=== PATIENT | female | born 1980 | race African-American/Black ===

== ENCOUNTER 2019-06-30 16:13 | Emergency (ER) | payer OTHER, SELFPAY ==
[2019-06-30] VITALS (8 sets, daily range): BP systolic 130–148; BP diastolic 60–97; PULSE 65–93; RESP 17–28; TEMP 36.7; O2SAT 100
--- NOTE | ~2019-06-30 | CT_ITS ---
EXAMINATION: CT BRAIN W/O DATE: 06/30/2019 20:38 INDICATION: Dizziness TECHNIQUE: Computed tomography (CT) of the head was performed without intravenous contrast. The dose- length product was 605.33 mGy-cm. The mA was adjusted according to patient size. Iterative reconstruc tion technique was employed. COMPARISON: CT dated 10/29/2012 FINDINGS: Normal brain parenchymal volume for age. Normal valera-white differentiation. No acute intrac ranial hemorrhage, infarction, mass or mass effect. No ventriculomegaly or midline shift. Midline sagittal images demonstrate a normal corpus callosum, c raniovertebral junction and sella turcica. Basilar cisterns are patent. Mild right frontal sinus disease. Mastoids are pneumatized. No depressed skull fractures. IMPRESSION: 1. No acute intracranial abnormality. 2: Mild right frontal sinus disease. Reviewed, dictated and finalized at location A. TER TENDER
--- NOTE | ~2019-06-30 | XR_ITS ---
EXAMINATION: XR chest 1V portable 06/30/2019 19:55 INDICATION: Dizziness. Smoker. PROCEDURE: AP portable chest COMPARISON: No prior studies for comparison. FINDINGS: The lungs are clear. The cardiomediastinal silhouette is within normal limits. There are no pleural effusions. There is no pneumothorax suspected. IMPRESSION: 1: NO ACUTE CARDIOPULMONARY DISEASE. Reviewed, dictated and finalized at location A. RAM DEVELOPER
--- NOTE | 2019-06-30 16:19 | ECG_ITS ---
Measurements Intervals [place] Rate: 84 P: 49 CT: 168 QRS: 18 QRSD: 82 T: 31 QT: 355 QTc: 421 Interpretive Statements SINUS RHYTHM BORDERLINE T WAVE ABNORMALITY- INFERIOR LEADS BASELINE ARTIFACT- I, II, III, AVR, AVL, AVF BORDERLINE ECG Electronically Signed On 06-30-2019 19:02:49 SCRIPT ARTIST by Brennon Fortune D.O.
[2019-06-30 16:46] LABS: Basophils Absolute Auto 0.1 K/mm3 (0.0-0.1); Basophils Percent Auto 0.7 % (0.2-1.2); Eosinophils Absolute Auto 0.1 K/mm3 (0-0.3); Eosinophils Percent Auto 0.8 % (0-4.4); Hemoglobin 8.5 g/dL (12.0-15.0); Immature Granulocyte Absolute 0.03 K/mm3 (0.00-0.031); Immature Granulocyte Percent A 0.4 % (0-0.5); Lymphocytes Absolute Auto 1.84 K/mm3 (0.9-3.2); Lymphocytes Percent Auto 24.4 % (18.3-44.2); Mean Corpuscular HGB Conc 29.3 g/dl (32-36); Mean Corpuscular Volume 61.4 fl (80-100); Mean Platelet Volume 9.9 fl (7.4-10.4); Monocytes Absolute Auto 0.4 K/mm3 (0.1-0.6); Monocytes Percent Auto 5.8 % (2.6-8.5); Neutrophils Absolute Auto 5.1 K/mm3 (1.3-6.7); Neutrophils Percent Auto 67.9 % (45.5-73.1); Platelet Count Result 297 k/mm3 (150-375); Red Blood Count 4.72 M/mm3 (4.2-5.4); Red Cell Distribution Width 20.4 % (11.5-14.5); White Blood Count 7.6 K/mm3 (4.5-10.0)
[2019-06-30 16:54] LABS: Hypochromasia 2+ (NORMAL); Platelet Estimate Adequate (Adequate)
[2019-06-30 16:55] LABS: Blood Urea Nitrogen 10 mg/dL (7-17); Calcium 9.4 mg/dL (8.4-10.2); Carbon Dioxide 20 mmol/L (22-30); Chloride 104 mmol/L (98-107); Estimated CRCL calculation 154 ml/min; Estimated Glomerular Filt Rate > 60; Glucose 83 mg/dL (65-105); Potassium 3.7 mmol/L (3.4-5.0); Sodium 135 mmol/L (137-145)
--- NOTE | 2019-06-30 19:44 | ED.DIZZY ---
HPI - Dizziness General Chief Complaint: Dizziness Stated Complaint: DIZZY Time Seen by Provider: 06/30/19 19:42 Source: patient and RN notes reviewed Mode of arrival: ambulatory Limitations: no limitations History of Present Illness HPI Narrative: A 38 y/o female presents to the ED d/t dizziness beginning earlier today. She states that she was at work and bent over, when she became very dizzy and felt like she was going to pass out. She reports that movement aggravates her dizziness. She also notes that her BP was 150/80 while she was at work. She denies any numbness, tingling, CP, SOB, fevers, chills, ABD pain, and any other medical complaints at this time. MD elicited complaint: dizziness Onset (ago): hour(s) (earlier today) Timing: sudden onset Context: change in body position Exacerbating factors: change in body position Associated symptoms: denies other symptoms Related Data Allergies Allergy/AdvReac Type Severity Reaction Status Date / Time morphine Allergy Mild Unknown Verified 06/01/19 21:17 Sulfa (Sulfonamide Allergy Mild Unknown Verified 06/01/19 21:17 Antibiotics) CRANBERRIES Allergy Unknown Unknown Uncoded 06/01/19 21:17 Review of Systems Review of Systems: All systems reviewed & are unremarkable except as noted in HPI and below Constitutional: Constitutional: Denies chills and Denies fever(s) Cardiovascular: Cardiovascular: Denies chest pain Respiratory: Respiratory: Denies dyspnea Gastrointestinal: Gastrointestinal: Denies abdominal pain Neurologic: Reports dizziness, Denies numbness and Denies tingling PMFSH Past Medical History Medical History (Updated 06/30/19 @ 21:20 by Jaron Chavez DO) Depression GERD (gastroesophageal reflux disease) Pneumonia Surgical History Surgical History (Updated 06/01/19 @ 21:54 by Tierney Reed) H/O LEEP Hx of cholecystectomy Hx of tubal ligation Social History Social History (Updated 06/01/19 @ 21:54 by Tierney Reed) Smoking status: Current every day smoker Exam Narrative: Exam Narrative: APPEARANCE: No acute distress, nontoxic, resting in bed HEENT: Normocephalic, atraumatic, OMM, TMs clear bilaterally EYES: PERRL, EOMI NECK: Supple, nontender, full range of motion without pain, no meningismus RESPIRATORY: No respiratory distress, clear to auscultation bilaterally with no rhonchi wheezing or rales CARDIOVASCULAR: RRR s murmur ABDOMINAL: Soft, nontender, nondistended MUSCULOSKELETAL: Moves all extremities. No clubbing, cyanosis or edema. NEURO: A and O ?3, following commands, speech normal, cranial nerves II through XII grossly intact,muscle strength 5 out of 5 bilateral upper and lower extremities patient is vertigo is worse with movement of the head bilateral SKIN:: Warm, dry. Normal Color PSYCHIATRIC: Normal affect/mood Course Course Emergency Course: Patient states she is feeling much better follow medication. Dizziness has resolved Discussed with patient results of workup and diagnosis. Discussed need for follow-up with primary care, proper use of medication, and reasons to return to the emergency department. Patient understands and agrees to current treatment plan Vital Signs Vital signs: Vital Signs Temperature 98.1 F 06/30/19 16:16 Pulse Rate 93 06/30/19 16:16 Respiratory Rate 20 06/30/19 16:16 Blood Pressure 148/97 H 06/30/19 16:16 Pulse Oximetry 100 06/30/19 16:16 Temperature 98.1 F 06/30/19 16:16 Pulse Rate 70 06/30/19 21:18 Respiratory Rate 28 H 06/30/19 21:18 Blood Pressure 133/60 06/30/19 21:18 Pulse Oximetry 100 06/30/19 21:18 MDM - Dizziness MDM Narrative Medical decision making narrative: Patient's vertigo is felt to be likely peripheral in origin. There is no diplopia, dysarthria or dysphagia. Patient's gait is stable and there are no cerebral deficits to exam. Risk factor for central causes of vertigo reviewed. Patient felt likely reasonable for continued outpatient m
[2019-06-30] MEDS: LACTATED RINGERS 1,000 ML 999 ML IV CONT (20:16)
[2019-06-30] MEDS: MECLIZINE HCL 25 MG TABLET PO (20:16)
[2019-06-30 20:30] LABS: Add Urine Microscopic? YES; Amorphous Sediment Urine Few; Appearance Urine Cloudy (Clear); Bacteria Urine 1+ /hpf; Bilirubin Urine Negative (Negative); Blood Urine 3+ (Negative); Color Urine Yellow (Yellow); Glucose Urine UA Negative (Negative); Ketones Urine Negative (Negative); Leukocyte Esterase Ur 1+ LEU/UL (Negative); Mucus Urine Moderate /lpf; Nitrate Urine Negative (Negative); Protein Urine Negative (Negative); RBC Urine >75 /hpf (0-2); Specific Grav Ur 1.018 (1.001-1.035); Squamous Epithelial Cell Urine Few /hpf (Few); Urobilinogen Urine Negative mg/dL (<2.0); WBC Urine 21-30 /hpf
[2019-06-30 20:48] LABS: Troponin I < 0.012 ng/mL (0.000-0.034)
[2019-06-30] MEDS: NITROFURANTOIN MONOHYD MACROCR 100 MG CAP PO (21:33)
== END 2019-06-30 21:37 | disposition home or self-care (01) ==
PROVIDERS: Emergency Medicine; Emergency Provider Emergency Medicine; PCP Family Medicine
DX: R42 Dizziness and giddiness (principal); N39.0 Urinary tract infection, site not specified; K21.9 Gastro-esophageal reflux disease without esophagitis; F17.200 Nicotine dependence, unspecified, uncomplicated; J32.1 Chronic frontal sinusitis; R94.31 Abnormal electrocardiogram [ECG] [EKG]
CPT/HCPCS: 36415; 70450; 71045; 80048; 81001; 81025; 84484; 85025; 85055; 87077; 87086; 87088; 93005; 96360; 99284; A9270; J7120

== ENCOUNTER 2019-07-29 11:03 | Emergency (ER) | payer OTHER, SELFPAY ==
[2019-07-29 11:10] VITALS: BP 136/84; PULSE 86; RESP 20; TEMP 37.6; O2SAT 100
[2019-07-29] MEDS: SODIUM CHLORIDE 0.9% IV 1,000 ML 999 ML IV CONT (12:01)
[2019-07-29] MEDS: KETOROLAC 15 MG/ML VIAL (*BKC) IV PUSH (12:03)
[2019-07-29] MEDS: PROCHLORPERAZINE EDISYLATE 10 MG/2 ML VIAL IV PUSH (12:04)
[2019-07-29 12:05] VITALS: BP 124/75; PULSE 60; RESP 12; TEMP 36.6; O2SAT 100
[2019-07-29 13:46] VITALS: BP 129/52; PULSE 62; RESP 19; TEMP 36.7; O2SAT 99
--- NOTE | 2019-07-29 14:24 | ED.HA ---
HPI - Headache General Chief Complaint: Headache Stated Complaint: headache/vomiting Time Seen by Provider: 07/29/19 11:10 Source: patient Mode of arrival: ambulatory Limitations: no limitations History of Present Illness HPI Narrative: Patient presents with chief complaint of frontal migraine that presented yesterday. Patient states she is alternating Tylenol, Motrin and Excedrin without relief of her migraine. Patient reports sensitivity to light and sound. Patient denies any head impact or injury. Patient denies any changes to her vision, hearing or neurological deficits. Patient reports a history of migraines and states that this 1 is presenting the same as previous. Patient denies chance of due to tubal ligation. Patient reports nausea and vomiting this morning due to the migraine. Related Data Home Medications Medication Instructions Recorded Confirmed multivitamin tablet 07/29/19 sertraline mg 07/29/19 Allergies Allergy/AdvReac Type Severity Reaction Status Date / Time morphine Allergy Severe Swelling Verified 07/29/19 11:16 of Lip/Tongue/Throat Sulfa (Sulfonamide Allergy Severe Rash Verified 07/29/19 11:16 Antibiotics) CRANBERRIES Allergy Severe Rash Uncoded 07/29/19 11:16 Review of Systems Review of Systems: Narrative: CONSTITUTIONAL: Denies fever, chills, or sweats. EYES: Denies visual changes, redness, or discharge. ENT: Denies rhinorrhea, congestion, sore throat, or otalgia. CARDIOVASCULAR: Denies chest pain, palpitations, or edema. RESPIRATORY: Denies cough or dyspnea. GASTROINTESTINAL: Denies abdominal pain, nausea, vomiting, or diarrhea. GENITOURINARY: Denies dysuria or hematuria. SKIN: Denies rash or itching. MUSCULOSKELETAL: Denies back pain, joint pain, or myalgia. NEUROLOGIC: Reports headache, denies numbness, dizziness, or weakness. PSYCHIATRIC: Denies anxiety or depression. [facility] Past Medical History Medical History (Updated 07/29/19 @ 14:32 by Carlota Varela PA-C) Depression GERD (gastroesophageal reflux disease) Pneumonia Surgical History Surgical History (Updated 06/01/19 @ 21:54 by Tierney Reed) H/O LEEP Hx of cholecystectomy Hx of tubal ligation Social History Social History (Updated 06/01/19 @ 21:54 by Tireney Reed) Smoking status: Current every day smoker Gender identity (if verbalized by the patient): Female Exam Narrative: Exam Narrative: GENERAL: Well-appearing, well-nourished, and in no acute distress. HEAD: Normocephalic, atraumatic. EYES: PERRLA and EOMI. ENT: Nares clear, no rhinorrhea or epistaxis. Mucous membranes moist. Oropharynx without tonsillar hypertrophy exudate or other lesions. Bilateral TMs pearly valera nonbulging NECK: Supple. No adenopathy or masses. No carotid bruits or JVD CHEST: Clear to auscultation. No respiratory distress. No wheezes rales or rhonchi HEART: Regular rate and rhythm. No murmur heard. Normal peripheral pulses. EXTREMITIES: Normal range of motion. No edema. SKIN: Warm, dry, no rash. NEURO: No focal deficits. Alert and oriented x3. PSYCH: Normal mood and affect. Course Vital Signs Vital signs: Vital Signs Temperature 99.7 F H 07/29/19 11:10 Pulse Rate 86 07/29/19 11:10 Respiratory Rate 20 07/29/19 11:10 Blood Pressure 136/84 07/29/19 11:10 Pulse Oximetry 100 07/29/19 11:10 Temperature 98.1 F 07/29/19 13:46 Pulse Rate 62 07/29/19 13:46 Respiratory Rate 19 07/29/19 13:46 Blood Pressure 129/52 L 07/29/19 13:46 Pulse Oximetry 99 07/29/19 13:46 MDM - Headache MDM Narrative Medical decision making narrative: Patient reports resolution of her migraine. Patient has been ambulating without any discomfort or distress. Patient states she is ready to be discharged home at this time. Patient will be given a note for work. Patient directed to return to emerge department if she develops any concerning, worsening or emergent symptoms. Patie
[2019-07-29 14:28] VITALS: BP 132/58; PULSE 70; RESP 14; TEMP 36.2; O2SAT 98
== END 2019-07-29 15:00 | disposition home or self-care (01) ==
PROVIDERS: Emergency Provider Family Medicine; PCP Family Medicine
DX: G43.009 Migraine without aura, not intractable, without status migrainosus (principal); F32.9 Major depressive disorder, single episode, unspecified; K21.9 Gastro-esophageal reflux disease without esophagitis; F17.200 Nicotine dependence, unspecified, uncomplicated
CPT/HCPCS: 96361; 96374; 96375; 99284; J0780; J1100; J1885; J7030

== ENCOUNTER 2020-11-03 16:18 | Emergency (ER) | payer OTHER, SELFPAY ==
--- NOTE | ~2020-11-03 | XR_ITS ---
XR hand RT min 3V DATE: 11/03/2020 16:50 INDICATION: Hyperextension injury and pain of fifth digit TECHNIQUE: 3 views COMPARISON: None FINDINGS: No fracture or dislocation, periosteal reaction or bone destruction. IMPRESSION: Negative Reviewed, dictated and finalized at location A. IMPRESSION: Negative
[2020-11-03 16:27] VITALS: BP 139/80; PULSE 80; RESP 17; TEMP 36.8; O2SAT 100
--- NOTE | 2020-11-03 17:41 | ED.GENADULT ---
HPI - General Adult General Chief complaint: Extremity Injury, Upper Stated complaint: finger injury Time Seen by Provider: 11/03/20 16:39 Source: patient Mode of arrival: ambulatory Limitations: no limitations History of Present Illness HPI narrative: Patient presents for evaluation of pain in the fifth digit of the right hand. 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 The incident occurred at approximately 1520 today. Immediately following the event she took 800mg ibuprofen but states that the medication did not reduce her pain level. States her pain is throbbing, severe and without numerical rating. No paresthesias. No loss of range of motion however movement does make her pain worse. She is right-hand dominant. No additional complaints or concerns. Related Data Home Medications Medication Instructions Recorded Confirmed multivitamin tablet 11/03/20 sertraline mg 11/03/20 Allergies Allergy/AdvReac Type Severity Reaction Status Date / Time morphine Allergy Anaphylactic Verified 11/03/20 16:35 Shock Sulfa (Sulfonamide Allergy Rash Verified 11/03/20 16:35 Antibiotics) Review of Systems Review of Systems: Narrative: CONSTITUTIONAL: Denies fever, chills, or sweats. EYES: Denies visual changes, redness, or discharge. ENT: Denies rhinorrhea, congestion, sore throat, or otalgia. CARDIOVASCULAR: Denies chest pain, palpitations, or edema. RESPIRATORY: Denies cough or dyspnea. GASTROINTESTINAL: Denies abdominal pain, nausea, vomiting, or diarrhea. GENITOURINARY: Denies dysuria or hematuria. SKIN: Denies rash or itching. MUSCULOSKELETAL: Reports right hand pain. Denies pain otherwise NEUROLOGIC: Denies headache, numbness, dizziness, or weakness. PSYCHIATRIC: Denies anxiety or depression. 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 HEAD: Normocephalic, atraumatic. EYES: PERRLA and EOMI. ENT: Nares clear, no rhinorrhea or epistaxis. Mucous membranes moist. Oropharynx without tonsillar hypertrophy exudate or other lesions. Bilateral TMs pearly valera nonbulging NECK: Supple. No adenopathy or masses. No carotid bruits or JVD CHEST: Clear to auscultation. No respiratory distress. No wheezes rales or rhonchi HEART: Regular rate and rhythm. No murmur heard. Normal peripheral pulses. ABDOMEN: Soft, nontender, nondistended, normal active bowel sounds. EXTREMITIES: Tenderness over the metacarpal of the fifth digit of the right hand and over the proximal and middle phalanges of the fifth digit of the right hand without crepitus or deformity SKIN: Warm, dry, no rash. NEURO: No focal deficits. Alert and oriented x3. PSYCH: Normal mood and affect. Course Course Emergency Course: This is a 40-year-old female who presents with a few hour history of right finger pain. X-ray negative for fracture. Provided with finger splint. Given Tylenol in the emergency department. Advise follow-up with occupational health and return fo
[2020-11-03] MEDS: ACETAMINOPHEN 500 MG TABLET 1000 MG PO (17:52)
--- NOTE | 2020-11-15 07:47 | PC.NURSE ---
LATE ENTRY This note is being entered to document information to the patient's record. The following information was omitted on [11/07/2020], by [Rachel Goel RN]. verbal order given to place metal finger splint by EDP Carry
== END 2020-11-03 18:21 | disposition home or self-care (01) ==
PROVIDERS: Emergency Provider Nurse Practitioner
DX: S66.911A Strain of unspecified muscle, fascia and tendon at wrist and hand level, right hand, initial encounter (principal); F32.9 Major depressive disorder, single episode, unspecified; F17.210 Nicotine dependence, cigarettes, uncomplicated; X50.9XXA Other and unspecified overexertion or strenuous movements or postures, initial encounter; Y93.F9 Activity, other caregiving
CPT/HCPCS: 29130; 73130; 99283; A9270

== ENCOUNTER 2020-12-06 01:05 | Emergency (ER) | payer OTHER, SELFPAY ==
[2020-12-06 01:06] VITALS: BP 145/59; PULSE 105; RESP 18; TEMP 35.9; O2SAT 100
--- NOTE | 2020-12-06 01:19 | ED.DENTAL ---
HPI - Dental/Oral General Chief complaint: Dental/Oral Stated complaint: TOOTH PAIN Time Seen by Provider: 12/06/20 01:16 Source: patient and family Mode of arrival: ambulatory Limitations: no limitations History of Present Illness HPI Narrative: 40-year-old with no major medical problems here with complaints of dental pain for last 2 days however in the middle of the night pain got intensified. She states that she is unable to sleep. She is scheduled to see a dentist next week. No history of fever or chills. Location: Tooth # (10,11,12) Onset (ago): day(s) (2) Severity scale (1-10): 10 Exacerbating factors: nothing Context: history of dental caries Related Data Home Medications Medication Instructions Recorded Confirmed multivitamin tablet 11/03/20 sertraline mg 11/03/20 Allergies Allergy/AdvReac Type Severity Reaction Status Date / Time morphine Allergy Anaphylactic Verified 12/06/20 01:10 Shock Sulfa (Sulfonamide Allergy Rash Verified 12/06/20 01:10 Antibiotics) Review of Systems Review of Systems: All systems reviewed & are unremarkable except as noted in HPI and below Constitutional: Constitutional: Reports no additional constitutional complaints Eyes: Eyes: Reports no additional eye complaints ENT: Reports dental pain Cardiovascular: Cardiovascular: Reports no additional cardiovascular complaints Respiratory: Respiratory: Reports no additional respiratory complaints PMFSH Past Medical History Medical History Depression Surgical History Surgical History History of cholecystectomy History of tubal ligation Family History Family History Mother Colon cancer Breast cancer Social History Social History Smoking packs per day: 1 Smoking cigarettes per day: 20.0 Smoking status: Current every day smoker Alcohol use details: Social Substance use: never 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 HEAD: Normocephalic, atraumatic. EYES: PERRLA and EOMI. ENT: Nares clear, . Mucous membranes moist. Multiple dental caries #10, 11, 12 NECK: Supple. CHEST: Clear to auscultation. No respiratory distress. HEART: Regular rate and rhythm. No murmur heard. Normal peripheral pulses. ABDOMEN: Soft, nontender, nondistended, normal active bowel sounds. EXTREMITIES: Normal range of motion. No edema. SKIN: Warm, dry, no rash. NEURO: No focal deficits. Alert and oriented x3. PSYCH: Normal mood and affect. Course Vital Signs Vital signs: Vital Signs Temperature 35.9 C L 12/06/20 01:06 Pulse Rate 105 H 12/06/20 01:06 Respiratory Rate 18 12/06/20 01:06 Blood Pressure 145/59 H 12/06/20 01:06 Pulse Oximetry 100 12/06/20 01:06 Temperature 35.9 C L 12/06/20 01:06 Pulse Rate 105 H 12/06/20 01:06 Respiratory Rate 18 12/06/20 01:06 Blood Pressure 145/59 H 12/06/20 01:06 Pulse Oximetry 100 12/06/20 01:06 Discharge Plan Discharge Clinical Impression: Dental caries Patient Disposition: Home, Self-Care Condition: Stable Instructions: Antibiotic Form, Toothache (ED) Prescriptions: New amoxicillin 875 mg tablet 875 mg PO Q12H Qty: 20 RF: 0 hydrocodone-acetaminophen 5-325 mg tablet 1 tablet PO Q8H PRN (Reason: pain) Qty: 14 RF: 0 No Action multivitamin Tablet RF: 0 sertraline 100 mg tablet RF: 0 Follow-up/Referrals: PHYSICIAN,DIRECTOR OF PROCUREMENT [Primary Care Provider] - Stand Alone Forms: Work/School Release IP Time of Dispo
[2020-12-06] MEDS: HYDROcodone/acetaminophen (*CRX) 5-325 MG TABLET 1 TAB PO (01:30)
== END 2020-12-06 02:00 | disposition home or self-care (01) ==
LOC: ANHED 02:04
PROVIDERS: Emergency Provider Family Medicine
DX: K02.9 Dental caries, unspecified (principal); F32.9 Major depressive disorder, single episode, unspecified; F17.210 Nicotine dependence, cigarettes, uncomplicated
CPT/HCPCS: 99283; A9270

== ENCOUNTER 2020-12-20 21:22 | Emergency (ER) | payer OTHER, SELFPAY ==
[2020-12-20 21:24] VITALS: BP 148/80; PULSE 97; RESP 18; TEMP 36.7; O2SAT 100
--- NOTE | 2020-12-20 21:50 | ED.DENTAL ---
HPI - Dental/Oral General Chief complaint: Dental/Oral Stated complaint: toothache Time Seen by Provider: 12/20/20 21:29 Source: patient Mode of arrival: ambulatory Limitations: no limitations History of Present Illness HPI Narrative: This is a 40 year old female that presents to the ER for toothache present since yesterday. Reports pain and swelling in an upper, front tooth. She has an appointment to see a dentist, but it is not until December. Denies fever. MD Complaint: tooth pain Location: Tooth # (10) Related Data Home Medications Medication Instructions Recorded Confirmed multivitamin tablet 07/29/19 sertraline mg 07/29/19 Allergies Allergy/AdvReac Type Severity Reaction Status Date / Time morphine Allergy Severe Swelling Verified 12/20/20 21:33 of Lip/Tongue/Throat Sulfa (Sulfonamide Allergy Severe Rash Verified 12/20/20 21:33 Antibiotics) CRANBERRIES Allergy Severe Rash Uncoded 12/20/20 21:33 Review of Systems Review of Systems: Narrative: CONSTITUTIONAL: Denies fever ENT: Reports dentalgia All systems reviewed & are unremarkable except as noted in HPI and below PMFSH Past Medical History Medical History (Updated 12/20/20 @ 22:00 by Shanthi Alvarez PA-C) Depression GERD (gastroesophageal reflux disease) Pneumonia Surgical History Surgical History (Updated 06/01/19 @ 21:54 by Tierney Reed) H/O LEEP Hx of cholecystectomy Hx of tubal ligation Social History Social History (Updated 06/01/19 @ 21:54 by Tierney Reed) Smoking status: Current every day smoker Gender identity (if verbalized by the patient): Female Exam Narrative: Exam Narrative: GENERAL: Well-appearing, well-nourished, and in no acute distress. HEAD: Normocephalic, atraumatic. EYES: EOMI. ENT: Mucous membranes moist. Oropharynx without tonsillar hypertrophy exudate or other lesions. Poor dentition. Tooth #10 is broken with mild surrounding erythema, no edema or fluctuance to suggest abscess NECK: Supple. No adenopathy or masses CHEST: Airway patent EXTREMITIES: Normal range of motion. No edema. SKIN: Warm, dry, no rash. NEURO: No focal deficits. Alert and oriented x3. PSYCH: Normal mood and affect Course Vital Signs Vital signs: Vital Signs Temperature 98.0 F 12/20/20 21:24 Pulse Rate 97 12/20/20 21:24 Respiratory Rate 18 12/20/20 21:24 Blood Pressure 148/80 H 12/20/20 21:24 Pulse Oximetry 100 12/20/20 21:24 Temperature 98.0 F 12/20/20 21:24 Pulse Rate 97 12/20/20 21:24 Respiratory Rate 18 12/20/20 21:24 Blood Pressure 148/80 H 12/20/20 21:24 Pulse Oximetry 100 12/20/20 21:24 MDM - Dental/Oral MDM Narrative Medical decision making narrative: Patient presents the emergency department for toothache since yesterday. She is afebrile and nontoxic-appearing. There is mild redness and tenderness surrounding the tooth. No edema or fluctuance to suggest abscess. Patient will be started on oral antibiotics. She is to follow-up with her dentist. She was given warnings to return the ER Critical Care Time Critical Care Time Critical Care Time: No Discharge Plan Discharge Clinical Impression: Toothache Patient Disposition: Home, Self-Care Condition: Stable Instructions: Antibiotic Form, Toothache (ED) Additional Instructions: Return to the Emergency Department if you experience fever >101, increasing swelling and redness of your tooth, or any other symptoms that are concerning to you Take antibiotic as prescribed. Tylenol or Ibuprofen as needed for pain. Follow up with your dentist Prescriptions: New amoxicillin-pot clavulanate 875-125 mg tablet 1 tablet PO Q12H 7 Days Qty: 14 RF: 0 No Action multivitamin Tablet RF: 0 sertraline 100 mg tablet RF: 0 Follow-up/Referrals: Ankit Beasley MD [Primary Care Provider] -
[2020-12-20] MEDS: AMOXICILLIN/CLAVULANATE K 875-125 MG TAB 1 TABLET PO (21:57)
[2020-12-20] MEDS: KETOROLAC (*BKC) 60 MG/2 ML VIAL IM (21:57)
[2020-12-20] MEDS: ACETAMINOPHEN 500 MG TABLET 1000 MG PO (21:57)
== END 2020-12-20 22:08 | disposition home or self-care (01) ==
LOC: ANHED 22:04
PROVIDERS: Emergency Provider Emergency Medicine
DX: K08.89 Other specified disorders of teeth and supporting structures (principal); F32.9 Major depressive disorder, single episode, unspecified; K21.9 Gastro-esophageal reflux disease without esophagitis; Z87.01 Personal history of pneumonia (recurrent); F17.200 Nicotine dependence, unspecified, uncomplicated
CPT/HCPCS: 96372; 99283; A9270; J1885

== ENCOUNTER 2023-09-14 15:44 | Outpatient (CLI) | payer OTHER, SELFPAY ==
--- NOTE | ~2023-09-14 | US_ITS ---
EXAMINATION: US pelvic complete w TV DATE: 09/14/2023 16:34 INDICATION: Pelvic and perineal pain. TECHNIQUE: Multiple transabdominal and transvaginal sonographic images of the pelvis were obtained. COMPARISON: None. FINDINGS: TRANSABDOMINAL ULTRASOUND: The uterus measures 9.2 x 5.1 x 5.8 cm. There is physiologic free fluid in the pelvis. TRANSVAGINAL ULTRASOUND: The endometrial complex measures 17 mm in thickness. There is a 1.4 cm intramural fibroid. The right ovary measures 3.0 x 2.0 x 2.7 cm. The left ovary measures 3.1 x 1.6 x 2.0 cm. There is normal vascul ar flow in the ovaries. IMPRESSION: 1. Small uterine fibroid. Reviewed, dictated and finalized at location E. IMPRESSION: 1. Small uterine fibroid.
== END 2023-09-14 15:45 | disposition home or self-care (01) ==
PROVIDERS: Visit Provider Student in an Organized Health Care Education/Training Program
DX: R10.2 Pelvic and perineal pain (principal); D25.9 Leiomyoma of uterus, unspecified
CPT/HCPCS: 76830; 76856

== ENCOUNTER 2023-12-17 01:38 | Day surgery (SDC) | payer OTHER, SELFPAY ==
[2023-12-15 14:49] VITALS: BMI 41.6
--- NOTE | 2023-12-15 14:54 | PC.NURSE ---
Report to the Outpatient Waiting Room, entrance under the green pavilion located off [facility], at time __10:00 am on date ____[phone]___. Planned Procedure Time: ___12:00pm . Time changes happen often and if your time is changed the preop area will call you the afternoon before. - You and your visitor will be asked to self-screen and do not enter if you have any COVID symptoms. - A mask is optional within the hospital at this time. Patients may have clear liquids (water, carbonated beverages, clear teas, apple juice) until 3 hours prior to surgery with a maximum of 20 ounces. (stop drinking by 9:00am) - No food from midnight until time of surgery Take the following medications with a SIP of water the morning of surgery: Acyclovir, Sertraline and Propranolol if needed. DO NOT STOP ANY OF YOUR OTHER PRESCRIPTION MEDICATIONS PRIOR TO SURGERY ?EXCEPT THE FOLLOWING Medications to discontinue per physician FERROUS SULFATE (DO NOT TAKE TODAY UNTIL THE DAY AFTER SURGERY) Please no make-up, nail tristanian, hairspray, perfume, deodorant, or body powder the day of surgery. No jewelry (including any body piercings) or valuables the day of surgery, leave them at home. Please take a shower or bath the night before, or the morning of, surgery with an antibacterial soap. Wear comfortable, loose fitting clothing. - Jewelry must be removed prior to entering the operating room. Rings and piercings that are not removed may be cut off. - The hospital will not accept responsibility for valuables. - Please leave all valuables, including medications, at home the day of surgery. If you are going home after surgery, a licensed otr flatbed driver must drive you home. - NO public transportation without another adult if you receive anesthesia. - We recommend that an adult stay with you for 24 hours following discharge. - We also recommend that you do not drive, make important decision, drink alcoholic beverages, or take any drugs that were not prescribed by your health care provider for at least 24 hours after your discharge time. Follow any additional instructions given to you from your surgeon. If you or anyone in your household have experienced Covid symptoms in the past week, please notify your surgeon or the nurse liaison at the phone number below for possible testing. Telephone instructions given to Caitlin (patient) and asked if any additional questions and then verbalized understanding. Patient advised to call surgeon office or pre surgery nurse liaison [phone] if any additional questions.
--- NOTE | 2023-12-16 13:17 | PM.IMHP ---
H&P: HPI History of Present Illness Date/Time: 12/16/23 13:17 Chief Complaint: abnormal uterine bleeding Uterine fibroid Narrative: 43-year-old female who presents for follow-up regarding abnormal uterine bleeding. Patient initially presented reporting heavy menses for the past 2 years. Patient is status post tubal ligation. Patient is not interested in hormonal contraception. Patient is interested in surgical management via endometrial ablation Review of Systems Cardiovascular: Cardiovascular: Denies chest pain, Denies leg edema, Denies palpitations, Denies dyspnea and Denies dyspnea on exertion Respiratory: Respiratory: Denies cough, Denies dyspnea and Denies dyspnea on exertion Gastrointestinal: Gastrointestinal: Denies abdominal pain, Denies constipation, Denies diarrhea, Denies nausea and Denies vomiting Genitourinary: Genitourinary: Denies hematuria, Denies urinary frequency, Denies dysuria, Denies pelvic pain, Denies urinary incontinence and Denies vaginal discharge Neurologic: Reports system reviewed and no additional complaints, except as documented Psychiatric: Psychiatric: Reports no additional psychiatric complaints Endocrine: Endocrine: Denies palpitations PMFSH Past Medical History Medical History Depression Depression Depression GERD (gastroesophageal reflux disease) GERD (gastroesophageal reflux disease) HSV-2 (herpes simplex virus 2) infection Pneumonia Pneumonia Screening mammogram for breast cancer Surgical History Surgical History H/O LEEP H/O LEEP History of cholecystectomy History of cholecystectomy History of tubal ligation History of tubal ligation Hx of cholecystectomy Hx of tubal ligation Family History Family History Mother Breast cancer Mother Colon cancer Breast cancer Social History Social History Smoking packs per day: 1 Smoking cigarettes per day: 20.0 Years smoked: 12 Smoking pack-years: 12.00 Smoking status: Current every day smoker Tobacco type: cigarettes Second hand tobacco smoke exposure: Yes Alcohol intake: current Drinks per week: 1 Alcohol use details: seldom less than 1per month Substance use: never Substance use type: does not use Do You Feel Safe in your Home?: Yes Lack of Transportation: No Lack of Food: Never True Current Housing: I Have Housing Concerned About Future Housing: No Difficulty Paying Gas/Electric Bills: No Difficulty Paying for Meds: No Currently Unemployed: No Education: Decline to Answer Difficulty w/ Childcare or Family Care: No Living arrangements: alone Occupation/Education: occupation 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[employer] Gender identity (if verbalized by the patient): Female Sexual Orientation (if Verbalized by the Patient): Straight or Heterosexual Spiritual care concerns: No Meds Home Medications and Allergies Home Medications Medication Instructions Recorded Confirmed Type acyclovir 800 mg tablet 800 mg PO DAILY #90 tabs 08/25/23 12/15/23 Rx ferrous sulfate 325 mg (65 mg 325 mg PO DAILY #90 tabs 11/30/23 12/15/23 Rx iron) tablet (FeroSul) sertraline 100 mg tablet 100 mg PO DAILY #90 tabs 11/30/23 12/15/23 Rx propranolol 10 mg tablet 10 mg PO TID PRN Anxiety 12/15/23 12/15/23 History Allergies Allergy/AdvReac Type Severity Reaction Status Date / Time morphine Allergy Severe Swelling Verified 12/15/23 14:52 of Lip/Tongue/Throat Sulfa (Sulfonamide Allergy Severe Rash Verified 12/15/23 14:52 Antibiotics) norethindrone Allergy Mild Hives Verified 12/15/23 14:52 CRANBERRIES Allergy Severe Rash Uncoded 12/15/23 14:52 Exam Const: General: no acute distress Eyes: EOM: EOMs intact bilaterally Neck: Neck: suppl
[2023-12-17 09:41] VITALS: BP 183/96; PULSE 68; RESP 18; TEMP 36.7; O2SAT 100
[2023-12-17 10:03] VITALS: BP 151/78
[2023-12-17] MEDS: LACTATED RINGERS 1,000 ML 30 ML IV CONT ×2 (10:05→12:50)
[2023-12-17 10:09] LABS: Hematocrit 38.4 % (37.0-47.0); Hemoglobin 12.8 g/dL (12.0-15.0)
[2023-12-17] MEDS: ACETAMINOPHEN 500 MG TABLET 1000 MG PO (10:10)
--- NOTE | 2023-12-17 11:31 | WPDANESEPPF ---
Anes - Initial Pre Proc Eval Procedure: Operation Date: 12/17/23 12:00 Proposed Procedures p Hysteroscopy Dilation and Curettage with Radha Endometrial Ablation - Bull Barber MD Date/Time: 12/17/23 11:31 Surgeon: Bull Barber MD Pre Op Diagnosis: abnormal uterine bleeding Patient Data Age: 43 Gender: F Height: 1.73 m Weight: 133.2 kg Last Vital Signs Temp 98.0 F 12/17/23 09:41 Pulse 68 12/17/23 09:41 Resp 18 12/17/23 09:41 BP 151/78 H 12/17/23 10:03 Pulse Ox 100 12/17/23 09:41 O2 Del Method Room Air 12/17/23 09:41 Allergies Allergy/AdvReac Type Severity Reaction Status Date / Time morphine Allergy Severe Swelling Verified 12/15/23 14:52 of Lip/Tongue/Throat Sulfa (Sulfonamide Allergy Severe Rash Verified 12/15/23 14:52 Antibiotics) norethindrone Allergy Mild Hives Verified 12/15/23 14:52 CRANBERRIES Allergy Severe Rash Uncoded 12/15/23 14:52 Home Medications Medication Instructions Recorded Confirmed Type acyclovir 800 mg tablet 800 mg PO DAILY #90 tabs 08/25/23 12/15/23 Rx ferrous sulfate 325 mg (65 mg 325 mg PO DAILY #90 tabs 11/30/23 12/15/23 Rx iron) tablet (FeroSul) sertraline 100 mg tablet 100 mg PO DAILY #90 tabs 11/30/23 12/15/23 Rx propranolol 10 mg tablet 10 mg PO TID PRN Anxiety 12/15/23 12/15/23 History Laboratory Tests 12/17/23 09:52 Hgb 12.8 D g/dL (12.0-15.0) Hct 38.4 % (37.0-47.0) Patient hx anesthesia problems: none Family hx anesthesia problems: none Results Review: All pre-operative results and documents have been reviewed as part of the pre-operative evaluation. [facility] Past Medical History Medical History Depression Depression Depression GERD (gastroesophageal reflux disease) GERD (gastroesophageal reflux disease) HSV-2 (herpes simplex virus 2) infection Pneumonia Pneumonia Screening mammogram for breast cancer Surgical History Surgical History H/O LEEP H/O LEEP History of cholecystectomy History of cholecystectomy History of tubal ligation History of tubal ligation Hx of cholecystectomy Hx of tubal ligation Family History Family History Mother Breast cancer Mother Colon cancer Breast cancer Social History Social History Smoking packs per day: 1 Smoking cigarettes per day: 20.0 Years smoked: 12 Smoking pack-years: 12.00 Smoking status: Current every day smoker Tobacco type: cigarettes Second hand tobacco smoke exposure: Yes Alcohol intake: current Drinks per week: 1 Alcohol use details: seldom less than 1per month Substance use: never Substance use type: does not use Do You Feel Safe in your Home?: Yes Lack of Transportation: No Lack of Food: Never True Current Housing: I Have Housing Concerned About Future Housing: No Difficulty Paying Gas/Electric Bills: No Difficulty Paying for Meds: No Currently Unemployed: No Education: Decline to Answer Difficulty w/ Childcare or Family Care: No Living arrangements: alone Occupation/Education: occupation 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 Difficult to assess individually, pt states none loose. ) Neurological: alert and oriented Last oral intake: >/= 8 hours ASA classification: III Emergent: no Anesthetic dilan
--- NOTE | 2023-12-17 12:05 | WPDHPUPDATE1 ---
History and Physical Update Update Date/Time: 12/17/23 12:05 History and Physical has been reviewed, including an updated exam of the patient. There are NO changes in the patient's condition. Risks, benefits, and alternatives have been discussed and questions answered. Patient agrees to proceed with procedure.
[2023-12-17] MEDS: KETOROLAC 15 MG/ML VIAL (*BKC) IV PUSH (12:28)
--- NOTE | 2023-12-17 12:42 | SUR.OPER ---
NO LOCAL USED PER SURGEON
--- NOTE | 2023-12-17 12:46 | P.OP_ITS ---
Procedure Note - Detailed Date of Procedure 12/17/23 Pre-op Diagnosis abnormal uterine bleeding uterine fibroid Post-op Diagnosis Same Procedure Performed hysteroscopy dilation & curettage endometrial ablation Surgeon Bull Barber MD Anesthesia General Indications abnormal uterine bleeding Findings globally thickened endometrial lining, polypoid appearing tissue from the anterior uterine wall. Normal tubal ostia bilaterally Description of Procedure Ace Smith presents for the above procedure. She was counseled as to the indications, risks, benefits, and alternatives to surgery, with the risks including bleeding, infection, damage to surrounding organs, VTE, and complications of anesthesia. Her verbal and written consent was obtained. PROCEDURE: The patient was taken to the OR and general anesthesia induced. She was prepped and draped in Harjit stirrups with support of the back and bilateral lower extremities. I/O catheterization performed of the bladder. The above findings were noted. A sin gle tooth tenaculum was placed on the anterior lip of the cervix. The uterus sounded to 8 cm. Hysteroscopy, using a normal saline medium, was performed and showed the above findings. Sharp uterine curettage was then performed and tissue placed on Telfa. The Radha device was set to a depth of 5.5 cm. The device was inserted into the uterus and deployed. Good fit was reassured by the device indicator. The cervical balloon was insufflated to ensure a good seal. Uterine integrity test was performed by the Radha device and was successful. The device was then activated. The entire ablation procedure lasted 120 seconds. The cervical balloon was desufflated and the device was removed from the uterus. The hysteroscope was re-introduced to ensure adequate tissue ablation. The tenaculum was removed and hemostasis was observed. The patient tolerated the procedure well. Sponge, lap, and needle counts were correct. The patient had SCD's on throughout the case for VTE prophylaxis. The patient was taken to the recovery room in stable condition. Estimated Blood Loss 20 Drains No Packing No Pathology Yes (endometrial curettings ) Complications No immediate complications Condition Stable Disposition PACU [facility] Billing Surgery - Charge Forward: Surgery Billing
[2023-12-17 12:50] VITALS: BP 147/85; PULSE 61; RESP 16; O2SAT 98
[2023-12-17 13:20] VITALS: BP 137/75; PULSE 60; RESP 16
[2023-12-17] MEDS: oxyCODONE HCL (*CRX) 5 MG TAB IR PO (13:26)
[2023-12-17 13:50] VITALS: BP 135/74; PULSE 62; RESP 20
== END 2023-12-17 14:00 | disposition home or self-care (01) ==
PROVIDERS: Visit Provider Student in an Organized Health Care Education/Training Program
PROC: 0U5B8ZZ Destruction of Endometrium, Via Natural or Artificial Opening Endoscopic (ICD-10-PCS; CPT 58563; principal; 2023-12-17 12:00)
DX: N93.9 Abnormal uterine and vaginal bleeding, unspecified (principal); D25.9 Leiomyoma of uterus, unspecified; Z98.51 Tubal ligation status; F17.210 Nicotine dependence, cigarettes, uncomplicated; K21.9 Gastro-esophageal reflux disease without esophagitis
CPT/HCPCS: 58563; 36415; 85014; 85018; 88305; A9270; J1100; J1885; J2250; J2405; J2704; J3010; J7120

== ENCOUNTER 2025-03-21 20:53 | Emergency (ER) | payer OTHER, SELFPAY ==
[2025-03-21 21:17] VITALS: BP 176/83; PULSE 60; RESP 16; TEMP 36.9; O2SAT 100
--- OUTSIDE RECORDS SUMMARY | 2025-03-21 23:40 | XMS_ITS | Clinical Summary ---
Author Organization [facility] Address [address] [place] [address] Care Team Providers Care Manager Strategic Marketing Name Role Phone Unavailable Primary Care Provider Unavailabl e Source Comments [facility],non-owned Affiliates and Associated Physician Practices is amultiple site organization consisting of ambulatory clinics and hospital sitesin [place], [place], [place]. This disclosure is being madepursuant to the Care Everywhere program and may not contain all information available regarding this patient. Last updated 18.[facility] Allergies Active Allergy Reactions Criticality Noted Date Comments Morphine Anaphylaxis High 04/02/2021 Sulfa Drugs Rash Medium 04/02/2021 Medications * Be aware that medications may not be up to date on this document. Alwaysverify current medications with the patient. HYDROcodone-acet aminophen (NORCO) 5-325 MG tablet Take 1 (one) tablet by mouth every 6 hours as needed for Pain 15 tablet 04/02/2021 Active sertraline (ZOLOFT) 100 MG tablet Take 100 mg by mouth once daily 02/14/2021 Active Multiple Vitamin (MULTIVITAMIN) TABS Take 1 tablet by mouth once daily 02/07/2021 Active OYSCO 500 + D 500-200 MG-UNIT tablet Take 1 tablet by mouth 2 times daily 01/15/2021 Active acyclovir (ZOVIRAX) 800 MG tablet Take 800 mg by mouth once daily 03/27/2021 Active Social History Tobacco Use Types Packs/Day Years Used Date Smoking Tobacco: Every Day Cigarettes Smokeless Tobacco: Never Alcohol Use Standard Drinks/Week Comments Yes 0 (1 standard drink = 0.6 oz pur e alcohol) socially Comments No Sex and Gender Information Value Date Recorded Sex Assigned at Not on file Legal Sex Female 5:04 PM CDT Gender Identity Not on file Sexual Orientation Not on file Last Filed Vital Signs Vital Sign Reading Time Taken Comments Blood Pressure 145/84 04/02/2021 5:10 PM CDT Pulse 98 04/02/2021 5:10 PM CDT Temperature 36.8 C (98.2 F) 04/02/2021 5:10 PM CDT Respiratory Rate 18 04/02/2021 5:10 PM CDT Oxygen Saturation 100% 04/02/2021 5:10 PM CDT Inhaled Oxygen Concentration - - Weight 124.7 kg (275 lb) 05/14/2021 11:11 AM FOOD STAND MANAGER Height 175.3 cm (5' 9) 05/14/2021 11:11 AM FOOD STAND MANAGER Body Mass Index 40.61 05/14/2021 11:11 AM FOOD STAND MANAGER Plan of Treatment Health Maintenance Due Date Last Done Comments LIPID TESTING 1981 MAMMOGRAM 1981 HIV SCREENING 1996 HEPATITIS C SCREENING 08/30/1999 DTAP/TDAP/TD VACCINES (1 - Tdap) 2000 HEPATITIS B VACCINE (1 of 3 - 19+ 3-dose series) 2000 PNEUMOCOCCAL VACCINE (1 of 2 - PCV) 2000 PAP SMEAR 2002 HPV VACCINE (1 - 3-dose SCDM series) 2008 DEPRESSION SCREENING 06/01/2024 COVID-19 VACCINE (1 - 2023-2 5 season) 2025 INFLUENZA VACCINE (#1) 2025 ZOSTER VACCINE (1 of 2) 09/04/2031 HIB VACCINE Aged Out No longer eligi ble based on patient's age to complete this topic MENINGOCOCCAL (Group B) VACC INE SHARED DECISION-MAKING Aged Out No longer eligibl e based on patient's age to complete this topic MENINGOCOCCAL GROUPS A/C/Y/W VACCINE Aged Out No longer eligible b ased on patient's age to complete this topic Insurance * Guarantor: SAIRA SMITH Account Type Relation to Patient Date of Phone Billing Address Personal/Family [address] [place] [address] [employer]IG[employer] SELF PAY NO INSURANCE Member Subscriber Plan / Payer (Ef fective for All Dates) Name:Saira Smith Member ID:Not on file Relation to Subscriber:Not on file Name:SAIRA SMITH Subscriber ID:Not on file Address: [address] [place] [address] Payer ID:Not on file Group ID:Not on file Type:Self Pay Address: [place], [place] * Guarantor: SAIRA SMITH Account Type Relation to Patient Date of Phone Billing Address Personal/Family [address] [place] [address] CIGNA SELF PAY NO INSURANCE Member Subscriber Plan / Payer (Ef fective for All Dates) Name:Saira Smith Member ID:Not on file Relation to Subscriber:Not on file Name:SAIRA SMITH Subscriber ID:Not on file Address: [address] [place] [address] Payer ID:Not on file Group ID:Not on file Type:Self Pay Address: [place], [place] * Guarantor: SAIRA SMITH Account Type Relation to Patient Date of Phone Billing Address Personal/Family [address] [place] [address] CIGNA SELF PAY NO INSURANCE Member Subscriber Plan / Payer (Ef fective for All Dates) Name:Saira Smith Member ID:Not on file Relation to Subscriber:Not on file Name:SAIRA SMITH Subscriber ID:Not on file Address: [address] [place] [address] Payer ID:Not on file Group ID:Not on file Type:Self Pay Address: [place], [place] [facility]
--- NOTE | 2025-03-21 23:52 | ED.HA ---
HPI - Headache General Chief Complaint: Headache Stated Complaint: migraine Time Seen by Provider: 03/21/25 23:33 History of Present Illness HPI Narrative: Patient is a 44-year-old female who presents the ER with a migraine headache. She reports she has had migraines in the past but has not had one for a couple of years. Patient reports her headache started this afternoon and it was so bad she had to leave work. She endorses nausea and vomiting along with photophobia. Patient endorses a history of migraines but denies any other medical history relevant to this ER visit. She reports she has had multiple imaging in the past. Patient denies any recent fevers, sore throat, congestion, or neck stiffness. Related Data Home Medications ?Medication ?Instructions ?Recorded ?Confirmed ?Last Taken ?Type propranolol 10 mg tablet 10 mg PO TID PRN Anxiety 12/15/23 01/11/24 Unknown History Allergies Allergy/AdvReac Type Severity Reaction Status Date / Time morphine Allergy Severe Swelling Verified 03/22/25 00:03 of Lip/Tongue/Throat Sulfa (Sulfonamide Allergy Severe Rash Verified 03/22/25 00:03 Antibiotics) norethindrone Allergy Mild Hives Verified 03/22/25 00:03 CRANBERRIES Allergy Severe Rash Uncoded 01/11/24 10:21 Review of Systems Review of Systems: All systems reviewed & are unremarkable except as noted in HPI and below PMFSH Past Medical History Medical History Depression GERD (gastroesophageal reflux disease) Pneumonia Depression Screening mammogram for breast cancer HSV-2 (herpes simplex virus 2) infection Depression GERD (gastroesophageal reflux disease) Pneumonia Surgical History Surgical History H/O gynecological procedure 12/17/23 hysteroscopy, dilation & curettage, endometrial ablation History of tubal ligation History of cholecystectomy Hx of tubal ligation H/O LEEP Hx of cholecystectomy History of tubal ligation History of cholecystectomy H/O LEEP Family History Family History Mother Breast cancer Mother Colon cancer Breast cancer Social History Social History Smoking packs per day: 1 Smoking cigarettes per day: 20.0 Years smoked: 12 Smoking pack-years: 12.00 Smoking status: Current every day smoker Tobacco type: cigarettes Second hand tobacco smoke exposure: Yes Alcohol intake: current Drinks per week: 1 Alcohol use details: seldom less than 1per month Substance use: never Substance use type: does not use Do You Feel Safe in your Home?: Yes Lack of Transportation: No Lack of Food: Never True Current Housing: I Have Housing Concerned About Future Housing: No Difficulty Paying Gas/Electric Bills: No Difficulty Paying for Meds: No Currently Unemployed: No Education: Decline to Answer Difficulty w/ Childcare or Family Care: No Living arrangements: alone Occupation/Education: occupation 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 HEAD: Normocephalic, atraumatic. NECK: Supple. No adenopathy, no masses. RESPIRATORY: Airway patent, respirations nonlabored. Clear to auscultation bilaterally, no rales, rhonchi, wheezing. CARDIOVASCULAR: Regular rate and rhythm without murmurs, rubs, or gallops. Peripheral pulses 2+ and equal bilaterally. ABDOMINAL: Soft, nontender, nondistended, no hepatosplenomegaly. Normoactive BS. MUSCULOSKELETAL: Moves all extremities. Strength/ROM intact without gross deformities. SKIN: Warm, dry, normal color. No rashes. NEURO: A&O X3. Speech clear. Cranial nerves II-XII intact. No ataxic movements. PSYCHIATRIC: Appropriate mood and affect. Normal interaction. Course Vital Signs Vital signs: Vital Signs Temperature 36.9 C 03/21/25 21:17 Pulse Rate 60 03/21/25 21:17 Respiratory Rate 16 03/21/25 21:17 Blood Pressure 176/83 H 03/21/25 21:17 Pulse Oximetry 100 03/21/25 21:17 Oxygen Delivery Room Air 03/21/25 21:17 Temperature 36.9 C 03/21/25 21:17 Pulse Rate 60 03/22/25 00:12 Respiratory Rate 15 03/22/25 00:12 Blood Pressure 161/87 H 03/22/25 00:12 Pulse Oximetry 100 03/22/25 00:12 Oxygen Delivery Room Air 03/21/25 21:17 MDM - Headache MDM Narrative Medical decision making narrative: Patient is a 44-year-old female who presents the ER with a migraine headache. She reports she has had migraines in the past but has not had one for a couple of years. Patient reports her headache started this afternoon and it was so bad she had to leave work. She endorses nausea and vomiting along with photophobia. Patient endorses a history of migraines but denies any other medical history relevant to this ER visit. She reports she has had multiple imaging in the past. Patient denies any recent fevers, sore throat, congestion, or neck stiffness. Medications Ordered: 1 L normal saline IV bolus, Decadron IV, Benadryl IV, Reglan IV, magnesium IV, Toradol IV Diagnosis: Migraine headache Patient Education/Shared MDM: Patient reports she has had CT scans of her brain in the past, and this is not the worst headache of my life. She endorses improvement of symptoms following medication administration. She was strongly advised to maintain hydration status upon discharge and follow-up with her PCP as needed. She will be discharged home with a prescription for Zofran. Strict return precautions provided. Patient verbalized understanding and is in agreement with plan. Vital signs stable at time of discharge. All questions answered. Differential Diagnosis Differential diagnosis: Likely migraine, tension headache and headache Discharge Plan Discharge Clinical Impression: Migraine, Headache Patient Disposition: Home Condition: Stable Instructions: Antibiotic Form, Migraine Headache (ED) Additional Instructions: Please return to the ER with any worsening symptoms. Follow-up with primary care provider as needed. You may take Tylenol and ibuprofen together for pain control. Please take Zofran as needed for nausea. Remember to drink lots of water. Patient Language: Swedish Prescriptions: New ondansetron 4 mg tablet,disintegrating 4 mg PO Q6H Qty: 30 0RF No Action propranolol 10 mg Tablet 10 mg PO TID PRN (Reason: Anxiety) acetaminophen 500 mg tablet 500 mg PO Q6H PRN (Reason: pain) Qty: 30 0RF ibuprofen 600 mg tablet 600 mg PO Q6H PRN (Reason: pain) Qty: 30 0RF sertraline 100 mg tablet 100 mg PO DAILY Qty: 90 0RF ferrous sulfate [FeroSul] 325 mg (65 mg iron) tablet 325 mg PO DAILY Qty: 90 0RF acyclovir 800 mg tablet See Rx Instructions .ROUTE .COMPLEX Qty: 90 0RF Dose Instruction: TAKE 1 TABLET BY MOUTH DAILY Rx Instructions: TAKE 1 TABLET BY MOUTH DAILY Follow-up/Referrals: PHYSICIAN,SERVICE WRITER ADVISOR [Primary Care Provider, Internal Medicine] Stand Alone Forms: Work/School Release IP Time of Disposition: 01:04
[2025-03-22] MEDS: SODIUM CHLORIDE 0.9% IV 1,000 ML 999 ML IV CONT (00:08)
[2025-03-22] MEDS: METOCLOPRAMIDE HCL INJ 10 MG/2 ML VIAL IV PUSH (00:08)
[2025-03-22] MEDS: dexAMETHasone SOD PHOS INJ 10 MG/ML 1 ML VIAL IV PUSH (00:08)
[2025-03-22] MEDS: KETOROLAC 15 MG/ML VIAL (*BKC) IV PUSH (00:08)
[2025-03-22] MEDS: MAGNESIUM SULF 1 GM/D5W 100 ML 1 GM/100 ML BAG IVPB (00:09)
[2025-03-22 00:12] VITALS: BP 161/87; PULSE 60; RESP 15; O2SAT 100
== END 2025-03-22 01:17 | disposition home or self-care (01) ==
PROVIDERS: Emergency Provider Registered Nurse
DX: G43.909 Migraine, unspecified, not intractable, without status migrainosus (principal); K21.9 Gastro-esophageal reflux disease without esophagitis; F32.A Depression, unspecified; F17.210 Nicotine dependence, cigarettes, uncomplicated; Z87.01 Personal history of pneumonia (recurrent); Z90.49 Acquired absence of other specified parts of digestive tract; Z79.899 Other long term (current) drug therapy
CPT/HCPCS: 96365; 96375; 99284; J1100; J1200; J1885; J2765; J3475; J7030